=== PATIENT | male | born 1980 | race Caucasian/White ===

== ENCOUNTER 2019-02-25 19:59 | Emergency (ER) | payer MEDICAID ==
[~2019-02-25] VITALS: Ht 170.2 cm; Wt 56.3 kg
[~2019-02-25 19:59] MED LIST: LEVE500T53 PO; LORA-446 PO
[2019-02-25 20:05] VITALS: BP 121/77
== END 2019-02-25 20:36 | disposition home or self-care (01) ==
LOC: ED 20:26
DX: J02.0 Streptococcal pharyngitis (principal); B95.5 Unspecified streptococcus as the cause of diseases classified elsewhere; G40.909 Epilepsy, unspecified, not intractable, without status epilepticus; Z72.89 Other problems related to lifestyle
CPT/HCPCS: 99283

== ENCOUNTER 2019-07-10 17:05 | Emergency (ER) | payer MEDICAID ==
[~2019-07-10] VITALS: Ht 167.6 cm; Wt 58.9 kg
[2019-07-10 17:06] VITALS: BP 131/71
--- NOTE | 2019-07-10 17:30 | NUR ---
[facility]: PT AMBULATORY TO ROOM FROM LOBBY
[2019-07-10] MEDS ORDERED: OXYcodone/APAP 5/325MG TABLET ONE (17:47)
[2019-07-10] MEDS ORDERED: BENZOCAINE 20% SPRAY 0.5ML ONE (17:47)
[2019-07-10] MEDS ORDERED: BENZOCAINE 20% SPRAY 0.5ML TP ONE (18:00)
[2019-07-10] MEDS ORDERED: OXYcodone/APAP 5/325MG TABLET PO ONE (18:00)
== END 2019-07-10 18:30 | disposition home or self-care (01) ==
LOC: ED 18:27
DX: K04.6 Periapical abscess with sinus (principal); G40.909 Epilepsy, unspecified, not intractable, without status epilepticus; F17.210 Nicotine dependence, cigarettes, uncomplicated
CPT/HCPCS: 41800; 99284